=== PATIENT | female | born 1965 | race Caucasian/White ===

== ENCOUNTER 2017-08-03 18:47 | Emergency (ER) | payer OTHER ==
[~2017-08-03] VITALS: Ht 167.6 cm; Wt 65.8 kg
[2017-08-03] MEDS ORDERED: IBUPROFEN 400 MG TABLET. PO ONE (19:45)
[2017-08-03] MEDS ORDERED: IBUP400T18 PO (19:50)
--- NOTE | 2017-08-03 19:52 | PHYS DOC ---
Adult General Chief Complaint Chief Complaint: FOOT INJURY PAIN HPI HPI 52-year-old female presenting to the emergency department today after injuring her right foot. She reports that she was working with a ladder which slipped and fell on her right foot. She is a pain that is sharp moderate intermittent worse with walking and without alleviating factors. There is associated swelling. She denies any other injuries. Review of systems is negative for ankle injury knee pain, cp or sob or any other injuries. All other review of systems is negative unless otherwise noted in history of present illness. ED course: 52-year-old female presenting to the emergency department today with right foot injury. X-rays unremarkable. Patient was administered ibuprofen. I recommend rest ice and elevation to follow-up with her doctor in the next 2-3 days if her symptoms are not improving. The patient was then discharged home in stable condition. They were to return if their symptoms worsened or if they were concerned for any reason. [id number] discharge instructions and return precautions were given. Patient's questions were answered to their satisfaction. Patient is comfortable plan. Review of Systems Review of Systems SEE ABOVE. Current Medications Current Medications Current Medications Medications (Trade) Dose Ordered Sig/Moises Start Time Stop Time Status Last Admin Dose Admin Ibuprofen (Motrin) 400 mg 1X ONCE 08/03/17 19:45 08/03/17 19:46 DC Allergies Allergies Allergies Coded Allergies Type Severity Reaction Last Updated Verified No Known Drug Allergies 08/03/17 No Physical Exam Physical Exam SEE ABOVE Constitutional: Well developed, well nourished, no acute distress, non-toxic appearance. [] HENT: Normocephalic, atraumatic, bilateral external ears normal, oropharynx moist, no oral exudates, nose normal. Eyes: PERRLA, EOMI, conjunctiva normal, no discharge. [] Neck: Normal range of motion, no tenderness, supple, no stridor. Cardiovascular:Heart rate regular rhythm, no murmur [] Lungs & Thorax: Bilateral breath sounds clear to auscultation Abdomen: Bowel sounds normal, soft, no tenderness, no masses, no pulsatile masses. Skin: Warm, dry, no erythema, no rash. [] Back: No tenderness, no CVA tenderness. Extremities: The patient's right foot is normal color 2 second cap refill normal motor and sensory function of the foot. Mild tenderness palpation along the dorsum of the foot. Normal range of motion of the ankle nontender ankle. The remainder the extremities are unremarkable. Neurologic: Alert and oriented X 3, normal motor function, normal sensory function, no focal deficits noted. [] Psychologic: Affect normal, judgement normal, mood normal. EKG EKG [] Radiology/Procedures Radiology/Procedures [] Course & Med Decision Making Course & Med Decision Making Pertinent Labs and Imaging studies reviewed. (See chart for details) [] Dragon Disclaimer Dragon Disclaimer This electronic medical record was generated, in whole or in part, using a voice recognition dictation system. Departure Departure: Impression: Primary Impression: Right foot injury Disposition: HOME, SELF-CARE Condition: STABLE Referrals: PCP,UNKNOWN (PCP) Patient Instructions: RICE - Routine Care for Injuries, [id number] Additional Instructions: Thank you for allowing us to participate in your care today. Followup with your primary care physician in 3 days if your symptoms do not improve. Call your Primary Doctor tomorrow and inform them of your visit today. If you do not have a primary care provider you can ask for a list of our primary care providers. Return to the emergency department you have any new or concerning findings. This should be evaluated by the primary care physician and any necessary consulting services for continued management within a few days after discharge. Return to emergency room if you have any new or concerning symptoms including but not limited to fever, chills, nausea, vomiting, intractable pain, any new rashes, chest pain, shortness of air, uncontrolled bleeding, difficulty breathing, and/or vision loss. Scripts Ibuprofen (IBUPROFEN) 400 Mg Tablet 1 TAB PO PRN Q8HRS Y for PAIN, #20 TAB Prov: RYAN NAVARRO MD 08/03/17 RYAN NAVARRO MD Aug 03, 2017 19:52
[2017-08-03 20:50] VITALS: BP 118/72
--- NOTE | 2017-08-04 08:27 | RAD ---
FOOT RIGHT 3V Clinical Indication: Lateral fell on top of foot today, with pain at the base of the fifth metatarsal. Comparison: None. Technique: Frontal, oblique, and lateral views of the right foot are obtained. Findings: No acute fracture or dislocation is seen. Joint spaces are maintained. Overlying soft tissues demonstrate no focal abnormality. IMPRESSION: No acute osseous injury seen.
== END 2017-08-03 20:50 | disposition home or self-care (01) ==
LOC: ER 18:47
DX: S99.921A Unspecified injury of right foot, initial encounter (principal); W11.XXXA Fall on and from ladder, initial encounter; Y93.89 Activity, other specified; Y92.89 Other specified places as the place of occurrence of the external cause; Y99.8 Other external cause status
CPT/HCPCS: 73630; 99284

== ENCOUNTER → 2019-04-14 | Day surgery (SDC) | payer OTHER ==
[~2019-04-14] MED LIST: ALBUTEROL SULFATE 2.5 MG/3 ML NEBU. NEB PRN; ATROPINE 0.5 MG/5 ML DISP.SYRIN. IV PRN; IBUP400T18 PO; IV RINGERS SOLUTION,LACTATED 1,000 ML IV SCH; NALOXONE 0.4 MG/ML VIAL. IV PRN; ONDANSETRON PF 4 MG/2 ML VIAL. IV PRN; PROPOFOL 10,000 MCG/ML (20ML) VIAL IV ONE; diphenhydrAMINE 50 MG/ML VIAL IV PRN
[2019-04-14 12:50] VITALS: BP 104/63
== END ==
LOC: SURG 10:21
PROVIDERS: ATTEND Internal Medicine Gastroenterology
DX: Z12.11 Encounter for screening for malignant neoplasm of colon (principal); K63.89 Other specified diseases of intestine; Z86.010 Personal history of colon polyps; Z88.1 Allergy status to other antibiotic agents
CPT/HCPCS: 45378; J2704; J7120